=== PATIENT | female | born 1970 | race Two or more races ===

== ENCOUNTER 2024-08-12 05:55 | Inpatient (IN) | payer MEDICAID, OTHER ==
[~2024-08-12] VITALS: Ht 165.1 cm; Wt 86.2 kg
[2024-08-12] MEDS: PANTOPRAZOLE 40 MG/10 ML VIAL INJ IV ONE ×2 (09:10→15:19)
[2024-08-12] MEDS: SODIUM CHLORIDE 0.9% 1,000 ML IV ONE (09:10)
[2024-08-12] MEDS: ONDANSETRON HCL 4 MG/2 ML VIAL IV ONE (09:10)
[2024-08-12] MEDS: MORPHINE SULFATE 4 MG/ML SYR/VIAL IV ONE (09:11)
[2024-08-12 09:41] LABS: Basophils # (auto) 0 10 ^3/uL (0-0.2); Basophils % (auto) 0.3 % (0.0-2.0); Eosinophils # (auto) 0 10 ^3/uL (0-0.8); Eosinophils % (auto) 0.4 % (0.0-7.0); Hematocrit 45.6 % (36.0-46.0); Hemoglobin 15.8 g/dL (12.2-16.2); Lymphocytes # (auto) 2.4 10 ^3/uL (0.4-5.4); Lymphocytes % (auto) 23.6 % (10.0-50.0); Mean Corpuscular Hgb Conc. 34.7 g/dL (32.0-36.0); Mean Corpuscular Volume 92.2 fL (80.0-100.0); Monocytes # (auto) 0.8 10 ^3/uL (0-1.3); Monocytes % (auto) 7.5 % (0.0-12.0); Neutrophils % (auto) 68.2 % (37.0-80.0); Nucleated Red Blood Cells % 0.1 %; Platelet Count (auto) 333 10^3/uL (140-450); Red Blood Cells 4.95 10^6/uL (4.0-5.20); Red Cell Distribution Width 12.7 % (11.8-14.3); White Blood Cell 10.2 10^3/uL (4.4-10.8)
[2024-08-12 09:48] LABS: Anion Gap 8 (5-15); Carbon Dioxide 28 mmol/L (20-31); Chloride 106 mmol/L (98-107); Potassium 3.4 mmol/L (3.5-5.1); Sodium 142 mmol/L (136-145)
[2024-08-12 09:50] LABS: Calcium 9.8 mg/dL (8.7-10.4)
[2024-08-12 09:54] LABS: BUN/Creatinine Ratio 20.6 (10.0-20.0); Blood Urea Nitrogen 13 mg/dL (9-23); Glucose 93 mg/dL (74-106)
[2024-08-12 09:59] LABS: Urine Bacteria None Seen /hpf (None Seen)
[2024-08-12 10:33] LABS: Urine Blood Negative /uL (Negative); Urine Clarity Turbid (Clear); Urine Color Yellow (Yellow); Urine Mucus FEW (None Seen); Urine Protein, UAD 1+ (Negative); Urine Specific Gravity 1.032 (1.001-1.035); Urine Urobilinogen 3 mg/dL (Negative); Urine WBC 3 /hpf (0 - 5)
[2024-08-12] MEDS ORDERED: NITROGLYCERIN 0.4 MG SL TAB SL PRN (12:30)
[2024-08-12] MEDS ORDERED: DOCUSATE SOD 100 MG CAP PO PRN (12:30)
[2024-08-12 12:58] LABS: Magnesium 2.1 mg/dL (1.6-2.6)
[2024-08-12 12:59] LABS: Phosphorus 3.2 mg/dL (2.4-5.1)
[2024-08-12] MEDS: POTASSIUM EFFERVESENT TAB 25 MEQ PO ONE (15:18)
[2024-08-12] MEDS: MORPHINE SULFATE INJ 2 MG/ml SYRG IV PRN (15:19)
[2024-08-12] MEDS: ONDANSETRON HCL 4 MG/2 ML VIAL IV PRN (15:19)
[2024-08-12] MEDS: cefTRIAXone 1GM/50ML D5W 50 ML IV ONE (15:20)
[2024-08-12 15:33] VITALS: PULSE 51; RESP 16; O2SAT 95
[2024-08-12 17:01] VITALS: PULSE 47; RESP 22; O2SAT 96
[2024-08-12 17:02] VITALS: BP 154/82; PULSE 46; RESP 22; TEMP 98.2; O2SAT 96
[2024-08-12] MEDS: SODIUM CHLORIDE 0.9% 1,000 ML IV SCH (18:36)
[2024-08-12 20:00] VITALS: PULSE 52; RESP 17; O2SAT 99
[2024-08-12 20:57] VITALS: BP 185/95; PULSE 51; RESP 20; TEMP 98.2; O2SAT 95
[2024-08-12 21:00] VITALS: BP 126/70; PULSE 52; RESP 16; TEMP 97.3; O2SAT 95
[2024-08-12] MEDS: PANTOPRAZOLE 40 MG/10 ML VIAL INJ IV SCH (22:06)
[2024-08-12 22:10] LABS: Hematocrit 39.7 % (36.0-46.0); Hemoglobin 13.8 g/dL (12.2-16.2)
[2024-08-13] VITALS (8 sets, daily range): BP systolic 110–152; BP diastolic 52–92; PULSE 43–54; RESP 17–21; TEMP 97–98.1; O2SAT 96–99
[2024-08-13 06:39] LABS: Basophils # (auto) 0 10 ^3/uL (0-0.2); Basophils % (auto) 0.2 % (0.0-2.0); Eosinophils # (auto) 0.1 10 ^3/uL (0-0.8); Eosinophils % (auto) 1.5 % (0.0-7.0); Hematocrit 37.7 % (36.0-46.0); Hemoglobin 13.3 g/dL (12.2-16.2); Lymphocytes # (auto) 2.6 10 ^3/uL (0.4-5.4); Lymphocytes % (auto) 39.6 % (10.0-50.0); Mean Corpuscular Hemoglobin 32.1 pg (28.0-32.0); Mean Corpuscular Hgb Conc. 35.2 g/dL (32.0-36.0); Mean Corpuscular Volume 91.4 fL (80.0-100.0); Monocytes # (auto) 0.6 10 ^3/uL (0-1.3); Monocytes % (auto) 9.2 % (0.0-12.0); Neutrophils # (auto) 3.3 10 ^3/uL (1.6-8.6); Neutrophils % (auto) 49.5 % (37.0-80.0); Nucleated Red Blood Cells % 0.1 %; Platelet Count (auto) 228 10^3/uL (140-450); Red Blood Cells 4.13 10^6/uL (4.0-5.20); Red Cell Distribution Width 12.4 % (11.8-14.3); White Blood Cell 6.6 10^3/uL (4.4-10.8)
[2024-08-13 06:59] LABS: Albumin 3.5 g/dL (3.2-4.8); Alkaline Phosphatase 43 U/L (46-116); Anion Gap 7 (5-15); Aspartate Aminotransferase < 8 U/L (13-40); BUN/Creatinine Ratio 25.9 (10.0-20.0); Bilirubin, Total 0.7 mg/dL (0.2-1.0); Blood Urea Nitrogen 15 mg/dL (9-23); Calcium 8.7 mg/dL (8.7-10.4); Carbon Dioxide 28 mmol/L (20-31); Chloride 108 mmol/L (98-107); Glucose 73 mg/dL (74-106); Potassium 3.4 mmol/L (3.5-5.1); Sodium 143 mmol/L (136-145); Total Protein 5.4 g/dL (5.7-8.2)
[2024-08-13 07:00] LABS: Alanine Aminotransferase < 9 U/L (7-40)
[2024-08-13] MEDS ORDERED: cefTRIAXone 1GM/50ML D5W 50 ML IV SCH (09:00)
[2024-08-13] MEDS: metroNIDAZOLE 500MG/100ML 100 ML IV SCH (09:24)
[2024-08-13 10:21] LABS: Hemoglobin 14.4 g/dL (12.2-16.2)
[2024-08-13 22:19] LABS: Hematocrit 37.8 % (36.0-46.0)
[2024-08-13] MEDS: SODIUM CHLORIDE 0.9% 1,000 ML IV SCH (22:47)
[2024-08-13] MEDS: POTASSIUM EFFERVESENT TAB 25 MEQ PO ONE (22:48)
[2024-08-14] VITALS (9 sets, daily range): BP systolic 109–163; BP diastolic 46–103; PULSE 51–97; RESP 16–24; TEMP 36.9; O2SAT 97–99
[2024-08-14 06:23] LABS: Basophils # (auto) 0 10 ^3/uL (0-0.2); Basophils % (auto) 0.3 % (0.0-2.0); Chloride 108 mmol/L (98-107); Eosinophils # (auto) 0.1 10 ^3/uL (0-0.8); Eosinophils % (auto) 1.1 % (0.0-7.0); Hematocrit 39.4 % (36.0-46.0); Hemoglobin 13.7 g/dL (12.2-16.2); Lymphocytes # (auto) 2.5 10 ^3/uL (0.4-5.4); Lymphocytes % (auto) 39.4 % (10.0-50.0); Mean Corpuscular Hemoglobin 32.1 pg (28.0-32.0); Mean Corpuscular Hgb Conc. 34.8 g/dL (32.0-36.0); Mean Corpuscular Volume 92.1 fL (80.0-100.0); Monocytes # (auto) 0.6 10 ^3/uL (0-1.3); Neutrophils # (auto) 3.2 10 ^3/uL (1.6-8.6); Neutrophils % (auto) 50.2 % (37.0-80.0); Platelet Count (auto) 263 10^3/uL (140-450); Potassium 3.7 mmol/L (3.5-5.1); Red Blood Cells 4.27 10^6/uL (4.0-5.20); Red Cell Distribution Width 12.5 % (11.8-14.3); Sodium 141 mmol/L (136-145); White Blood Cell 6.5 10^3/uL (4.4-10.8)
[2024-08-14 06:24] LABS: Anion Gap 5 (5-15); Calcium 9.1 mg/dL (8.7-10.4); Carbon Dioxide 28 mmol/L (20-31)
[2024-08-14 06:29] LABS: BUN/Creatinine Ratio 9.1 (10.0-20.0); Blood Urea Nitrogen 5 mg/dL (9-23); Glucose 83 mg/dL (74-106)
[2024-08-14] MEDS: LIDOCAINE 2%HCL (LOCAL ANESTH.) INJ 10ml MDV ONE (12:08)
[2024-08-14] MEDS ORDERED: PROPOFOL 10 MG/ML 20 ML IV ONE (12:19)
[2024-08-14] MEDS ORDERED: PANT40TA2 PO (13:37)
[2024-08-14] MEDS: hydrALAZINE HCL 20 MG/ML VL IV PRN (14:43)
[2024-08-14] MEDS: ACETAMINOPHEN 325 MG TAB PO PRN (16:02)
[2024-08-14] MEDS: LORazepam 2MG/ML-1ML VIAL IV ONE (16:02)
[2024-08-15 00:27] VITALS: BP 138/84; PULSE 59; RESP 18; TEMP 98; O2SAT 96
[2024-08-15 04:43] VITALS: BP 147/77; PULSE 56; RESP 18; TEMP 98.2; O2SAT 97
[2024-08-15 06:04] LABS: Basophils # (auto) 0.1 10 ^3/uL (0-0.2); Basophils % (auto) 0.6 % (0.0-2.0); Eosinophils # (auto) 0.1 10 ^3/uL (0-0.8); Eosinophils % (auto) 1.1 % (0.0-7.0); Hematocrit 42.8 % (36.0-46.0); Hemoglobin 15.1 g/dL (12.2-16.2); Lymphocytes # (auto) 1.7 10 ^3/uL (0.4-5.4); Lymphocytes % (auto) 20.1 % (10.0-50.0); Mean Corpuscular Hemoglobin 32.1 pg (28.0-32.0); Mean Corpuscular Hgb Conc. 35.3 g/dL (32.0-36.0); Mean Corpuscular Volume 90.9 fL (80.0-100.0); Monocytes # (auto) 0.6 10 ^3/uL (0-1.3); Monocytes % (auto) 6.8 % (0.0-12.0); Neutrophils # (auto) 5.9 10 ^3/uL (1.6-8.6); Neutrophils % (auto) 71.4 % (37.0-80.0); Nucleated Red Blood Cells % 0.1 %; Platelet Count (auto) 252 10^3/uL (140-450); Red Cell Distribution Width 12.5 % (11.8-14.3); White Blood Cell 8.3 10^3/uL (4.4-10.8)
[2024-08-15 06:17] LABS: Anion Gap 10 (5-15); Carbon Dioxide 25 mmol/L (20-31); Chloride 105 mmol/L (98-107); Potassium 3.2 mmol/L (3.5-5.1); Sodium 140 mmol/L (136-145)
[2024-08-15 06:18] LABS: Calcium 9.4 mg/dL (8.7-10.4)
[2024-08-15 06:23] LABS: Glucose 82 mg/dL (74-106)
[2024-08-15 06:44] LABS: BUN/Creatinine Ratio 9.6 (10.0-20.0); Blood Urea Nitrogen < 5 mg/dL (9-23)
[2024-08-15 08:00] VITALS: PULSE 61; RESP 17; O2SAT 96
[2024-08-15] MEDS: POTASSIUM CHL 20 Meq TABLET PO ONE (08:18)
[2024-08-15 09:00] VITALS: BP 146/87; PULSE 61; RESP 17; TEMP 98.2; O2SAT 96
[2024-08-15] MEDS ORDERED: amLODIPine BESYLATE 5 MG TAB PO ONE (09:30)
== END 2024-08-15 11:30 | disposition home or self-care (01) | DRG 241 ==
LOC: ER 05:55 → WEST WING 12:20 → OVERFLOW 12:20 → EAST 16:50 → WEST WING 08-14 18:17
PROVIDERS: ADMIT Internal Medicine; ATTEND Internal Medicine
PROC: 0DB67ZX Excision of Stomach, Via Natural or Artificial Opening, Diagnostic (ICD-10-PCS; 2024-08-14)
PROC: 0DB98ZX Excision of Duodenum, Via Natural or Artificial Opening Endoscopic, Diagnostic (ICD-10-PCS; principal; 2024-08-14 12:30)
DX: K29.71 Gastritis, unspecified, with bleeding (principal); E27.8 Other specified disorders of adrenal gland; E86.0 Dehydration; K52.9 Noninfective gastroenteritis and colitis, unspecified; F12.10 Cannabis abuse, uncomplicated; E87.6 Hypokalemia; K44.9 Diaphragmatic hernia without obstruction or gangrene; D35.02 Benign neoplasm of left adrenal gland; Z87.891 Personal history of nicotine dependence
CPT/HCPCS: 36415; 74176; 76856; 80048; 80053; 81001; 82270; 83690; 83735; 84100; 85014; 85018; 85025; 85048; 87045; 87427; 96365; 96375; G0378; J2003; J2405; J2470; J2704; J3490